=== PATIENT | female | born 1940 | race Two or more races ===

== ENCOUNTER 2017-12-17 12:25 | Emergency (ER) | payer OTHER ==
[~2017-12-17] VITALS: Ht 157.5 cm; Wt 47.2 kg
[~2017-12-17 12:25] MED LIST: ADVAIR 5001 DISK W/1; ADVAIR HFA 45/212 GM; ASPIR-LOW81 MG; CALCIUM1 TAB; CLARITIN10 MG; CLONAZEPAM0.5 MG; LEVALBUTER0.63 MG/3; LOSARTAN-HCTZ1 EAC2; LUMITENE30 MG; MEDROLPACK PO; MILLIPRED5 MG; ONDANSETRON HCL4 MG PO; PEPCID AC20 MG PO; PRAVASTATIN SOD10 MG; PROTONIX40 MG; SINGULAIR10 MG; SKELAXIN800 MG PO; SPIRIVA; SPIRIVA RESPIMAT4 G1; ULTRACET PO; VITAMIN E600 UNIT; XOPENEX0.63 MG/3; ZYRTEC10 M3
[2017-12-17] MEDS ORDERED: SYMBICORT 16010.2 GM (12:51)
[2017-12-17] MEDS ORDERED: SULFASALAZINE500 MG (12:52)
[2017-12-17] MEDS ORDERED: METHOTREXATE2.5 MG (12:59)
[2017-12-17] MEDS ORDERED: FOLIC ACID1 MG (13:00)
[2017-12-17] MEDS ORDERED: ZANTAC300 MG (13:01)
[2017-12-17] MEDS ORDERED: OSTERA TABLET1 EACH (13:01)
[2017-12-17] MEDS ORDERED: ASPIR-LOW81 MG (13:02)
[2017-12-18] MEDS ORDERED: MEGESTROL400 MG/10 PO (05:56)
== END 2017-12-18 06:02 | disposition home or self-care (01) ==
LOC: ER 12:25
DX: K29.60 Other gastritis without bleeding (principal)

== ENCOUNTER 2019-01-29 11:35 | Emergency (ER) | payer OTHER ==
[~2019-01-29] VITALS: Ht 157.5 cm; Wt 47.6 kg
[~2019-01-29 11:35] MED LIST changes: +FOLIC ACID1 MG; +MEGESTROL400 MG/10 PO; +METHOTREXATE2.5 MG; +OSTERA TABLET1 EACH; +SULFASALAZINE500 MG; +SYMBICORT 16010.2 GM; +ZANTAC300 MG
[2019-01-29] MEDS ORDERED: FLUTICASONE-SA1 EAC5 (12:24)
[2019-01-29] MEDS ORDERED: CLONAZEPAM0.5 MG (12:25)
[2019-01-29] MEDS ORDERED: XOPENEX0.63 MG/3 (12:26)
[2019-01-29] MEDS ORDERED: SPIRIVA PO (12:28)
[2019-01-29] MEDS ORDERED: VITAMIN E400 UNI2 (12:32)
[2019-01-29] MEDS ORDERED: TRELEGY ELLIPT1 EACH (12:34)
[2019-01-29] MEDS ORDERED: DICLOFENAC SODI50 MG PO (12:50)
== END 2019-01-29 13:11 | disposition home or self-care (01) ==
LOC: ER 11:35
DX: M54.5 Low back pain (principal)

== ENCOUNTER 2019-02-16 10:46 | Emergency (ER) | payer OTHER ==
[~2019-02-16] VITALS: Ht 152.4 cm; Wt 43.1 kg
[~2019-02-16 10:46] MED LIST changes: +DICLOFENAC SODI50 MG PO; +FLUTICASONE-SA1 EAC5; +SPIRIVA PO; +TRELEGY ELLIPT1 EACH; +VITAMIN E400 UNI2
[2019-02-16] MEDS ORDERED: ASPIR 8181 MG (11:08)
== END 2019-02-16 12:40 | disposition home or self-care (01) ==
LOC: ER 10:46
DX: M54.5 Low back pain (principal)

== ENCOUNTER 2019-02-24 15:48 | Inpatient (IN) | payer OTHER ==
[~2019-02-24] VITALS: Ht 160 cm; Wt 56.7 kg
[~2019-02-24 15:48] MED LIST changes: +ASPIR 8181 MG
[2019-03-01] MEDS ORDERED: PANTOPRAZOLE SO40 MG PO (14:50)
[2019-03-01] MEDS ORDERED: LEVO-T25 MCG PO (14:50)
[2019-03-01] MEDS ORDERED: LOSARTAN POTASS50 MG PO (14:51)
[2019-03-01] MEDS ORDERED: TRELEGY ELLIPT1 EACH IH (14:51)
[2019-03-01] MEDS ORDERED: SIMVASTATIN20 MG PO (14:51)
== END 2019-03-15 01:07 | disposition expired | DRG 207 ==
LOC: ER 15:48 → MEDJ 02-25 10:51 → SEC-K 02-25 10:51 → MEDJ 02-25 16:43
PROVIDERS: ADMIT Internal Medicine
PROC: 4A12X4Z Monitoring of Cardiac Electrical Activity, External Approach (ICD-10-PCS; 2019-02-25)
PROC: 4A033R1 Measurement of Arterial Saturation, Peripheral, Percutaneous Approach (ICD-10-PCS; 2019-02-25)
PROC: 3E0F7GC Introduction of Other Therapeutic Substance into Respiratory Tract, Via Natural or Artificial Opening (ICD-10-PCS; 2019-02-25)
PROC: BB24ZZZ Computerized Tomography (CT Scan) of Bilateral Lungs (ICD-10-PCS; 2019-02-27)
PROC: 05H933Z Insertion of Infusion Device into Right Brachial Vein, Percutaneous Approach (ICD-10-PCS; 2019-02-28)
PROC: 5A1955Z Respiratory Ventilation, Greater than 96 Consecutive Hours (ICD-10-PCS; principal; 2019-03-01)
PROC: 0BH17EZ Insertion of Endotracheal Airway into Trachea, Via Natural or Artificial Opening (ICD-10-PCS; 2019-03-01)
PROC: 8E0ZXY6 Isolation (ICD-10-PCS; 2019-03-03)
DX: J18.1 Lobar pneumonia, unspecified organism (principal); J96.01 Acute respiratory failure with hypoxia; J44.1 Chronic obstructive pulmonary disease with (acute) exacerbation; N17.8 Other acute kidney failure; N39.0 Urinary tract infection, site not specified; E87.2 Acidosis; K57.30 Diverticulosis of large intestine without perforation or abscess without bleeding; I10 Essential (primary) hypertension; Z66 Do not resuscitate; B96.29 Other Escherichia coli [E. coli] as the cause of diseases classified elsewhere